=== PATIENT | male | born 1985 | race Caucasian/White ===

== ENCOUNTER 2017-08-12 19:55 | Observation (INO) ==
[2017-08-12] MEDS ORDERED: *HR* LORazepam 2 MG/ML VIAL IVP ONE (20:13)
--- NOTE | 2017-08-12 21:22 | Emergency Department Note ---
Disposition Clinical Impression: Food impaction of esophagus Qualifiers: Encounter type: initial encounter Qualified Code(s): T18.128A - Food in esophagus causing other injury, initial encounter Disposition: Home, Self-Care Condition: Good Time of Disposition: 05:34 General Adult HPI - General Chief complaint: ED General Medical Stated complaint: Foreign Body in Throat Time Seen by Provider: 08/12/17 20:09 Source: EMS Limitations: no limitations Nursing Notes Reviewed: Yes Vital Signs Reviewed: Yes - History of Present Illness HPI Narrative: Patient has a staple is in his esophagus. Maintaining his airway appropriately. Having to spit secretions. He cannot swallow any of them. States it started earlier in the day. Does have some discomfort in his esophageal area. Pain Scale: 4 - Related Data Allergies Allergy/AdvReac Type Severity Reaction Status Date / Time No Known Allergies Allergy Verified 08/12/17 19:57 All systems ED: reviewed and negative except as stated. Constitutional: Denies: fever, chills ENT ED: Denies: congestion Cardiovascular: Denies: chest pain, palpitations, syncope Respiratory: Denies: cough, dyspnea Gastrointestinal: Reports: other (Esophageal pain.). Denies: abdominal pain, nausea, vomiting, diarrhea Genitourinary: Denies: urgency, dysuria, frequency Past Medical History - Past Medical History Attestation: Yes The following information was validated with the patient. Source: patient Medical history: Reports: no medical history Psychiatric history: Reports: no psych history - Social History Smoking Status: Never smoker Smokeless Tobacco Status: No Alcohol use: Reports: none Drug use: Reports: none Physical Exam - General Limitations: no limitations General appearance: alert, in distress (Appears to be in pain. Constantly spitting secretions.) - Head Head exam: atraumatic, normocephalic, normal inspection - Eye Eye exam: Present: normal appearance, PERRL, EOMI - ENT ENT exam: normal exam, normal oropharynx, mucous membranes moist - Neck Neck exam: Present: normal inspection, full ROM, trachea midline - Chest Chest inspection: Present: normal inspection, symmetric chest wall rise - Respiratory Respiratory exam: Present: normal lung sounds bilaterally - Cardiovascular Cardiovascular exam: Present: regular rate, normal rhythm, normal heart sounds - Abdominal Exam Abdominal exam: Present: soft, Non-Tender. Absent: tenderness, distention, guarding, rebound, rigidity, organomegaly - Extremities Exam Extremities exam: Present: normal inspection, full ROM. Absent: tenderness, normal capillary refill, pedal edema - Back Exam Back exam: Present: normal inspection, full ROM. Absent: tenderness - Neurological Exam Neurological exam: Present: alert, oriented X3 - Psychiatric Psychiatric exam: Present: normal affect, normal mood - Skin Skin exam: Present: warm, dry, intact, normal color. Absent: rash, cyanosis Course Course Narrative: Male patient presenting to emergency complaining of a food bolus. He states he ate steak earlier in the day and has not been able to swallow. He is maintaining his airway appropriately. He is spitting his secretions. He is unable to swallow them. Denies any difficulty breathing. Does have a history of a SEISMOGRAPHER shunt. He was transferred here from a another outside facility. They tried glucagon there was no relief. He is well-appearing is standing in the room. Does not appear to be in distress. Lung sounds are clear heart tones are normal abdomen is soft and nontender. We did give the patient a dose of Ativan while here with no relief in a few bolus. We did contact surgery who took him for an endoscopy. - Consultations Consultation #1: I spoke with Dr. Serna. He is on his way in to see the patient. He had no additional request. Time: 21:22 Vital Signs Temperature 98.0 F 08/12/17 19:57 Pulse Rate 82 08/12/17 19:57 Respiratory Rate 18 08/12/17 19:57 Blood Pressure 125/74 08/12/17 19:57 O2 Sat by Pulse Oximetry 99 08/12/17 19:57 Temperature 97.7 F 08/13/17 03:45 Pulse Rate 61 08/13/17 03:45 Respiratory Rate 18 08/13/17 03:45 Blood Pressure 98/55 08/13/17 03:45 O2 Sat by Pulse Oximetry 97 08/13/17 03:45 Oxygen Delivery Oxygen Delivery Room Air Attestation Statement - Attestation Attestation: I examined this patient and my medical decision-making was reviewed with the Resident Physician. I agree with the documented findings, disposition and treatment plan as described except to the extent set forth below. Findings consistent with esophageal foreign body. Patient will be taken to endoscopy by surgery for removal.
[2017-08-12] MEDS ORDERED: Lidocaine -MPF 2% 2 ML VIAL ONE (21:50)
[2017-08-12] MEDS ORDERED: *HR* Succinylcholine 200 MG/10 ML VIAL IVP ONE (21:50)
[2017-08-12] MEDS ORDERED: *HR* Propofol 200 MG/20 ML VIAL IVP ONE (21:50)
[2017-08-12] MEDS ORDERED: *HR* Promethazine 25 MG/ML VIAL ONE (21:58)
[2017-08-12] MEDS ORDERED: *HR* FentaNYL (PF) 100 MCG/2 ML VIAL ONE (21:58)
--- NOTE | 2017-08-12 22:00 | General Surgery Consult Note ---
Date of Encounter: 08/12/17 Time of Encounter: 21:56 Assessment and Plan (1) Food impaction of esophagus Status: Acute I splayed to the patient that based upon his history I do think it would be appropriate to proceed with an EGD this evening. The endoscopy team has been called and we will perform this with thin the next hour or so. Qualifiers: Encounter type: initial encounter Qualified Code(s): T18.128A - Food in esophagus causing other injury, initial encounter History of Present Illness Consult date: 08/12/17 Reason for consult: other (Dysphagia) Requesting physician: Anny Hoang History of present illness: The patient presents to the office the past medical history significant for normal pressure hydrocephalus who states that this afternoon he was eating steak and subsequently has not been able to swallow his own secretions. He denies any nausea or vomiting or any abdominal pain and states these never had this happen in the past. He denies any heartburn once or reflux symptoms. He does not take any medications for heartburn and reflux but does take a home remedy (apple cider vinegar) once a day. He denies any diarrhea or constipation presented himself first of a [facility] with a tried glucagon without success and subsequently he has been transported to the [facility] for further evaluation. Of note I was consulted by Dr. Anny Hoang (resident-ER). Past Med Surg Social Fam HX - Past Medical History Medical history: no medical history Psychiatric history: no psych history - Past Surgical History Additional surgical history: MIS SPECIALIST Shunt - Social History Smoking Status: Never smoker Smokeless Tobacco Status: No Alcohol use: none Drug use: none Medications and Allergies 3 Allergy/AdvReac Type Severity Reaction Status Date / Time No Known Allergies Allergy Verified 08/12/17 19:57 Review of Systems All systems PM: reviewed and no additional remarkable complaints except as stated All systems PM: The remainder of the systems were reviewed and are negative General Surgery Exam Initial Vital Signs Temp Pulse Resp BP Pulse Ox 98.0 F 82 18 125/74 99 08/12/17 19:57 08/12/17 19:57 08/12/17 19:57 08/12/17 19:57 08/12/17 19:57 - Eyes PERRL, normal ocular movement - Respiratory normal expansion, normal respiratory effort, clear to auscultation - Cardiovascular Cardiovascular exam: Present: RRR, no murmurs/rubs/gallops - Abdomen Abdomen general surgery: Present: soft, non tender - Neurologic Present: CN 2-12 grossly intact - Musculoskeletal Present: other (No cyanosis or edema) - Psychiatric Psychiatric general surgery: Present: A&Ox3 Exam Initial Vital Signs Temp Pulse Resp BP Pulse Ox 98.0 F 82 18 125/74 99 08/12/17 19:57 08/12/17 19:57 08/12/17 19:57 08/12/17 19:57 08/12/17 19:57 Results - Labs All other labs normal. Consult Discharge Plan - Plan Referrals: Ivanna Suazo DO [Family Provider] - NONE,PCP [Primary Care Provider] -
[2017-08-12] MEDS ORDERED: Ondansetron 4 MG/2 ML VIAL ONE (22:03)
[2017-08-12] MEDS ORDERED: Dexamethasone 4 MG/ML VIAL ONE ×2 (22:03→22:24)
[2017-08-12] MEDS ORDERED: Simethicone 40 MG/0.6 ML MLS IR ONE (22:18)
[2017-08-12] MEDS ORDERED: *HR* Promethazine 25 MG/ML VIAL IVP ONE (22:18)
[2017-08-12] MEDS ORDERED: *HR* FentaNYL (PF) 100 MCG/2 ML VIAL IVP ONE (22:18)
[2017-08-12] MEDS ORDERED: *HR* Midazolam HCl 2 MG/2 ML VIAL IVP ONE (22:18)
[2017-08-12] MEDS ORDERED: Tetracaine/Benzocaine/Butamben 200MG/SPRAY (100SPY/BOT) MM ONE (22:18)
--- NOTE | 2017-08-12 22:18 | Pre-Sedation Evaluation ---
Pre-sedation evaluation - Pre-sedation checklist Recent Vitals: Last Vital Signs Temp 98.0 F 08/12/17 19:57 Pulse 82 08/12/17 19:57 Resp 18 08/12/17 19:57 BP 125/74 08/12/17 19:57 Pulse Ox 99 08/12/17 19:57 Airway Assessment: Patient can open mouth completely, TMJ function normal Possible difficult airway: No ASA Classification *see protocol: CLASS II-Mild systemic disease Plan of Care: Pt appropriate candidate for procedure/moderate/conscious sedation
[2017-08-12] MEDS: *HR* Midazolam HCl 5 MG/5 ML VIAL IVP ONE ×4 (22:27→22:34)
[2017-08-12] MEDS ORDERED: 0.9 % Sodium Chloride 1,000 ML IVC SCH (22:30)
[2017-08-12] MEDS ORDERED: *HR* Midazolam HCl 5 MG/5 ML VIAL IVP ONE (22:34)
--- NOTE | 2017-08-12 23:43 | Event Note ---
Date of Encounter: 08/12/17 Time of Encounter: 23:42 EGD-Food noted up to the upper third of the esophagus. Removed. Noted mild trachelization of the esophagus. Biopsy performed. Will discharge once awake and have him follow up in three weeks.
--- NOTE | 2017-08-13 00:27 | Anesthesia Evaluation Post Op ---
Date of Encounter: 08/13/17 Time of Encounter: 00:25 - Vital Signs Vital Signs: Vital Signs/O2 Sat/Glucose, Most Current Temp Pulse Resp BP Pulse Ox 08/13/17 00:16 66 16 102/62 96 08/13/17 00:06 67 16 98/60 95 08/12/17 23:56 99.7 F H 70 18 105/68 97 08/12/17 22:52 65 14 95/59 98 08/12/17 22:47 71 14 102/59 98 08/12/17 22:42 68 16 115/68 99 08/12/17 22:37 72 16 105/61 99 08/12/17 22:32 79 16 120/76 100 08/12/17 22:27 90 18 132/84 100 08/12/17 22:11 98.3 F 85 18 144/86 97 - Lungs Lungs: Clear Ascult./Percussion - Airway Airway: Non-obstructed - Cardiovascular Regular Rate - Mental Status Mental Status: Asleep with brisk response to light stimulation - Pain Pain Scale: 0 Pain Scale used: Chowdhury-Sol (Faces) - Nausea Vomiting Nausea Vomiting: Not Present - Hydration Hydration: NPO, Has not voided - Discharge PostOp Status: Transfer Patient to floor Anes Supervising Prov Stmt: Pt seen/evaluated, VSS And pt has met criteria for discharge to floor. - MD Rula
[2017-08-13] MEDS ORDERED: 0.9 % Sodium Chloride 1,000 ML IVC SCH (01:07)
[2017-08-13 03:52] VITALS: BP 98/55
[2017-08-13] MEDS ORDERED: Pantoprazole 40 MG VIAL IVP SCH (06:30)
== END 2017-08-13 06:32 | disposition home or self-care (01) ==
LOC: 3ANU 19:55 → EMEROO 19:55 → 3ANU 22:15
PROVIDERS: ADMIT Surgery; ATTEND Surgery
PROC: ENDOEBX (2017-08-12 22:00)